=== PATIENT | male | born 1960 | race Two or more races ===

== ENCOUNTER 2024-01-21 11:43 | Emergency (ER) | payer OTHER ==
[~2024-01-21] VITALS: Ht 170.2 cm; Wt 71.3 kg
[2024-01-21 13:58] VITALS: BP 148/87; PULSE 113; RESP 16; TEMP 98.4; O2SAT 99
[2024-01-21] MEDS ORDERED: AMOX875T3 PO (14:10)
[2024-01-21] MEDS ORDERED: NAPR-746 PO (14:10)
== END 2024-01-21 14:12 | disposition home or self-care (01) ==
LOC: ER 11:43
DX: H66.91 Otitis media, unspecified, right ear (principal)